=== PATIENT | female | born 1950 | race Caucasian/White ===

== ENCOUNTER 2018-05-12 09:42 | Emergency (ER) | payer MEDICARE, BC ==
--- NOTE | 2018-05-12 09:57 | UC ---
Throat Pain/Nasal Jose HPI - HPI Summary HPI Summary: 67-year-old woman comes to clinic today with a chief complaint of ear pain rhinorrhea sore throat and laryngitis and cough. It's been going on about a week. She was traveling in [place] when the symptoms started. She's been having some chills no recent fevers. Sore throat gets worse with a cough. She' s been using [id number] medications which to help with the symptoms briefly and then the symptoms return. - History of Current Complaint Stated Complaint: URI Time Seen by Provider: 05/12/18 09:48 - Allergies/Home Medications Allergies/Adverse Reactions: Allergies Allergy/AdvReac Type Severity Reaction Status Date / Time erythromycin base AdvReac Severe Nausea And Verified 05/12/18 09:48 Vomiting PMH/Surg Hx/FS Hx/Imm Hx Previously Healthy: Yes Endocrine History: Diabetes Cardiovascular History: Hypertension Respiratory History: Asthma - Surgical History Surgical History: None - Family History Known Family History: Positive: Non-Contributory Review of Systems All Other Systems Reviewed And Are Negative: Yes Constitutional: Positive: Chills Skin: Positive: Rash Eyes: Positive: Negative ENT: Positive: Sore Throat, Ear Ache - LEFT, Nasal Discharge Respiratory: Positive: Cough. Negative: Shortness Of Breath Cardiovascular: Positive: Negative Gastrointestinal: Positive: Negative Neurovascular: Positive: Negative Musculoskeletal: Positive: Negative Neurological: Positive: Negative Psychological: Positive: Negative Is Patient Immunocompromised?: No Physical Exam Triage Information Reviewed: Yes Appearance: No Pain Distress, Well-Nourished, Ill-Appearing - MILD Vital Signs Reviewed: Yes Eye Exam: Normal Eyes: Positive: Conjunctiva Clear ENT: Positive: Pharyngeal erythema, Nasal congestion, Nasal drainage, TM dull - LEFT Neck exam: Normal Neck: Positive: Supple Respiratory Exam: Normal Respiratory: Positive: Lungs clear, Normal breath sounds, No respiratory distress Cardiovascular: Positive: RRR Musculoskeletal Exam: Normal Musculoskeletal: Positive: Strength Intact, ROM Intact Neurological Exam: Normal Neurological: Positive: Alert, Muscle Tone Normal Psychological Exam: Normal Psychological: Positive: Age Appropriate Behavior Skin Exam: Normal Throat Pain/Nasal Course/Dx - Course Course Of Treatment: DISCUSSED VIRAL VERSES BACTERIAL INFECTION AND THE ROLE OF ANTIBIOTICS. THE PATIENT WISHES TO BE ON ANTIBIOTIC AT THIS TIME. - Differential Dx/Diagnosis Provider Diagnosis: Sinusitis Discharge - Sign-Out/Discharge Documenting (check all that apply): Patient Departure All imaging exams completed and their final reports reviewed: No Studies - Discharge Plan Condition: Stable Disposition: HOME Prescriptions: Amoxicillin/Clavulanate TAB* [Augmentin TAB 875*] 875 mg PO BID #20 tab Patient Education Materials: Sinusitis (ED) Referrals: Guillermina Renae MD [Primary Care Provider] - Additional Instructions: FOLLOW UP WITH YOUR DOCTOR IF NOT COMPLETELY IMPROVED. GET RECHECKED FOR ANY WORSENING OF YOUR CONDITION OR QUESTIONS OR CONCERNS. - Billing Disposition and Condition Condition: STABLE Disposition: Home
[2018-05-12 10:04] VITALS: BP 122/78
== END 2018-05-12 10:03 | disposition home or self-care (01) ==
LOC: UCEAST 09:42
DX: J32.9 Chronic sinusitis, unspecified (principal); E11.9 Type 2 diabetes mellitus without complications; J45.909 Unspecified asthma, uncomplicated; I10 Essential (primary) hypertension; Z88.1 Allergy status to other antibiotic agents
CPT/HCPCS: 99202; G0463

== ENCOUNTER 2020-03-27 12:25 | Inpatient (IN) ==
[2020-03-27] MEDS ORDERED: NS 0.9% 1000 ml BAG 1,000 ML IV ONE (12:35)
[2020-03-27 13:05] LABS: ABS Basophils 0.1 10^3/ul (0-0.2); ABS Eosinophils 0.2 10^3/ul (0-0.6); ABS Lymphocytes 2.8 10^3/ul (1.0-4.8); ABS Monocytes 0.6 10^3/ul (0-0.8); ABS Neutrophils 4.7 10^3/ul (1.5-7.7); Eosinophil % 2.5 %; Hematocrit 46 % (35-47); Hemoglobin 15.6 g/dL (12.0-16.0); Lymphocyte % 33.1 %; Mean Corpuscular HGB Conc 34 g/dL (31-36); Mean Corpuscular Hemoglobin 32 pg (27-31); Mean Corpuscular Volume 93 fL (80-97); Mean Platelet Volume 8.8 fL (7.4-10.4); Nucleated Red Blood Cells % 0.2; Platelet Count 303 10^3/uL (150-450); Red Blood Count 4.94 10^6 /uL (3.70-4.87); Red Cell Distribution Width 12 % (10-15); White Blood Count 8.4 10^3/uL (3.5-10.8)
[2020-03-27 13:12] LABS: Activated Partial Thrombo Time 30.1 seconds (26.0-38.0); INR 0.92 (0.82-1.09)
[2020-03-27 13:21] LABS: ALT 19 U/L (7-52); Albumin 4.4 g/dL (3.2-5.2); Albumin/Globulin Ratio 1.6 (1-3); Alkaline Phosphatase 93 U/L (34-104); BUN/Creatinine Ratio 17.9 (8-20); Blood Urea Nitrogen 15 mg/dL (6-24); CO2 Carbon Dioxide 30 mmol/L (22-32); Calcium 9.8 mg/dL (8.6-10.3); Chloride 98 mmol/L (101-111); Cholesterol 154 mg/dL; EGFR African American 81.8 (>60); EGFR Non-African American 67.6 (>60); Globulin 2.7 g/dL (2-4); Glucose 277 mg/dL (70-100); HDL Cholesterol 55.2 mg/dL; LDL Cholesterol 62 mg/dL; Sodium 136 mmol/L (135-145); Total Protein 7.1 g/dL (6.4-8.9); Triglycerides 182 mg/dL
[2020-03-27 13:37] LABS: Urine Appearance Cloudy; Urine Bilirubin Negative (Negative); Urine Blood Negative (Negative); Urine Color Yellow; Urine Glucose 3+(>=500 mg/dL) (Negative); Urine Ketones Negative (Negative); Urine Nitrite Negative (Negative); Urine Protein Negative (Negative); Urine Specific Gravity 1.025 (1.010-1.030); Urine Urobilinogen Negative (Negative)
[2020-03-27 13:40] LABS: Anion Gap 8 mmol/L (2-11)
[2020-03-27] MEDS ORDERED: Iodixanol (CONTRAST) 320 MG/ML 100 ML SDV IV ONE (15:17)
[2020-03-27] MEDS ORDERED: Alteplase (100 mg Vial) 100 mg VIAL ONE (15:25)
[2020-03-27] MEDS ORDERED: Labetalol IV 5 MG/ML 20 ml VIAL IV PUSH PRN (15:57)
[2020-03-27] MEDS ORDERED: Dextrose 50% Syringe 50 ml 25 GM/50 ML SYRINGE IV PUSH PRN (16:14)
[2020-03-27 16:36] LABS: Magnesium 1.9 mg/dL (1.9-2.7)
[2020-03-27] MEDS ORDERED: Albuterol HFA INHALER 8 gm MDI INH PRN (17:22)
[2020-03-27] MEDS ORDERED: Mometasone 220 MCG MDI INH PRN (17:24)
[2020-03-27] MEDS: KCL 20 MEQ/100 ML IVPREMIX 20 MEQ/100 ML BAG IV SCH ×3 (17:41→23:25)
[2020-03-28] MEDS: KCL 20 MEQ/100 ML IVPREMIX 20 MEQ/100 ML BAG IV SCH (01:44)
[2020-03-28 06:16] LABS: BUN/Creatinine Ratio 16.1 (8-20); Calcium 8.7 mg/dL (8.6-10.3); EGFR African American 116.2 (>60); Potassium 3.9 mmol/L (3.5-5.0)
[2020-03-28 06:53] LABS: ABS Basophils 0.1 10^3/ul (0-0.2); ABS Eosinophils 0.1 10^3/ul (0-0.6); ABS Lymphocytes 2.6 10^3/ul (1.0-4.8); ABS Monocytes 0.8 10^3/ul (0-0.8); ABS Neutrophils 7.4 10^3/ul (1.5-7.7); Eosinophil % 1.3 %; Hematocrit 40 % (35-47); Hemoglobin 13.9 g/dL (12.0-16.0); Lymphocyte % 23.7 %; Mean Corpuscular HGB Conc 35 g/dL (31-36); Mean Corpuscular Hemoglobin 33 pg (27-31); Mean Corpuscular Volume 93 fL (80-97); Mean Platelet Volume 8.9 fL (7.4-10.4); Platelet Count 268 10^3/uL (150-450); Red Blood Count 4.27 10^6 /uL (3.70-4.87); Red Cell Distribution Width 12 % (10-15)
[2020-03-28 07:03] LABS: BUN/Creatinine Ratio 16.1 (8-20); Calcium 8.7 mg/dL (8.6-10.3); EGFR African American 116.2 (>60); Potassium 3.8 mmol/L (3.5-5.0)
[2020-03-29 05:22] LABS: ABS Basophils 0.1 10^3/ul (0-0.2); ABS Eosinophils 0.2 10^3/ul (0-0.6); ABS Lymphocytes 2.3 10^3/ul (1.0-4.8); ABS Monocytes 0.7 10^3/ul (0-0.8); Eosinophil % 2.2 %; Hematocrit 39 % (35-47); Hemoglobin 13.3 g/dL (12.0-16.0); Lymphocyte % 24.9 %; Mean Corpuscular HGB Conc 34 g/dL (31-36); Mean Corpuscular Hemoglobin 32 pg (27-31); Mean Corpuscular Volume 93 fL (80-97); Mean Platelet Volume 8.6 fL (7.4-10.4); Platelet Count 234 10^3/uL (150-450); Red Blood Count 4.17 10^6 /uL (3.70-4.87); Red Cell Distribution Width 12 % (10-15); White Blood Count 9.4 10^3/uL (3.5-10.8)
[2020-03-29 05:42] LABS: BUN/Creatinine Ratio 14.3 (8-20); Calcium 8.8 mg/dL (8.6-10.3); EGFR African American 114.1 (>60); EGFR Non-African American 94.3 (>60); Potassium 3.9 mmol/L (3.5-5.0)
[2020-03-29 11:42] VITALS: BP 148/75
== END 2020-03-29 12:30 | disposition short-term general hospital (02) | DRG 63 ==
LOC: ICU 12:25 → ED 12:25
PROVIDERS: ADMIT Internal Medicine; ATTEND Internal Medicine Critical Care Medicine